=== PATIENT | male | born 1990 | race Caucasian/White ===

== ENCOUNTER 2021-01-17 07:03 | Emergency (ER) | payer SELFPAY ==
[2021-01-17 07:03] VITALS: BP 116/67; PULSE 85; RESP 16; TEMP 36.6; O2SAT 100; BMI 22.4
--- NOTE | 2021-01-17 07:14 | CT_ITS ---
STUDY: CT ABDOMEN AND PELVIS WITHOUT CONTRAST REASON FOR EXAM: Male, 30 years old. Flank pain and fever RADIATION DOSAGE (If Supplied By Facility): CTDIvol = ( 6.11 ) mGy, DLP = ( 289.97 ) mGycm TECHNIQUE: Transaxial images were obtained from the dome of the diaphragm to the symphysis pubis without oral contrast, and without intravenous contrast. Sagittal and coronal images were reconstructed. Individualized dose optimization techniques were used for this CT. COMPARISON: None. FINDINGS: The visualized lung bases are unremarkable. The visualized portions of the heart are within normal limits. Normal liver. Normal gallbladder and extrahepatic biliary system. Normal spleen. Normal pancreas. Normal bilateral adrenal glands. There is right-sided hydronephrosis and hydroureter with a minimal amount of perinephric and periureteral inflammatory stranding. Findings are due to a 3.3 mm stone in the distal right ureter best seen on axial image 139, and coronal image 58. Additionally, there are punctate bilateral nonobstructing renal stones in the cortical medullary junctions. Left kidney is free of obstruction. No solid renal lesion. Hyperdensities within the stomach likely represent ingested medication Normal small intestine. Retained stool noted in the colon. The appendix is visualized and appears normal. Appendix seen on coronal recon images 35-41. Normal abdominal aorta. Normal inferior vena cava. Normal retroperitoneum. Normal urinary bladder. Normal abdominal wall. Normal osseous structures. CT/Abdomen/Pelvis without Cont IMPRESSION: Right-sided hydronephrosis and hydroureter with a minimal amount of perinephric and periureteral inflammatory stranding. Findings due to a 3.3 mm stone in the distal right ureter Bilateral nonobstructing nephrolithiasis Normal appendix visualized No free intraperitoneal fluid, air, or suspicious adenopathy Electronically Signed: Ishan Fatima MD at 8:05 EDT , Service support ,
--- NOTE | 2021-01-17 07:15 | EX.ED.DYSGE1 ---
HPI History of Present Illness Chief Complaint: Flank Pain Narrative Narrative: 30-year-old male with reported history of kidney stones presents with 2 days of right flank pain. He describes this is intermittent. He states he gets sweaty when this occurs. He states that he is never had to have a procedure to remove a kidney stone however he also states that his kidney stones never passed. Patient has not followed up with urology. He denies any medical problems. He is making normal urine and stool. He denies hematuria or dysuria. PFSH PFSH Home Medications hydrocodone-acetaminophen 1 tab PO Q6H 3 Days #12 tablet 01/17/21 [Rx Last Taken Unknown] ondansetron HCl [Zofran] 4 mg PO Q8H #14 tab 01/17/21 [Rx Last Taken Unknown] tamsulosin [Flomax] 0.4 mg PO DAILY #7 cap 01/17/21 [Rx Last Taken Unknown] Allergy/AdvReac Type Severity Reaction Status Date / Time Penicillins Allergy Hives Verified 01/17/21 07:05 Social History Smoking Status: Current every day smoker ROS ROS ED Constitutional Constitutional ED: Denies chills, fever(s) or sweats Eyes Eyes: Denies blurry vision or change in vision ENT ENT ED: Denies ear pain, rhinorrhea or sore throat Cardiovascular Cardiovascular: Denies chest pain, palpitations or racing heartbeat Respiratory/Chest Respiratory/Chest: Denies cough, dyspnea or sputum Gastrointestinal Gastrointestinal: Reports nausea and other Details: Intermittent right flank pain ; Denies abdominal pain, constipation, diarrhea or vomiting Genitourinary Genitourinary ED: Denies dysuria, hematuria or urinary frequency Musculoskeletal Musculoskeletal: Denies arthralgias, myalgias or neck pain Integumentary Denies abscess, Abrasions or rash Neurologic Neurologic: Denies headache(s), paresthesias or weakness Psychiatric Psychiatric: Denies anxiety, depression, suicidal ideation or suicidal thoughts Endocrine Endocrinology: Denies polydipsia or polyuria EXAM Physical Exam Const Vital Signs: 01/17/21 07:03 Temperature 97.9 F Temperature Source Temporal Pulse Rate 85 Respiratory Rate 16 Blood Pressure 116/67 Blood Pressure Mean 83 Pulse Ox 100 Oxygen Delivery Method Room Air General Appearance ED: Negative for pallor HEENT Reports normocephalic, head/scalp atraumatic and moist mucous membranes Eyes PERRL and EOMs intact bilaterally Neck no lymphadenopathy and supple Chest Wall inspection of chest normal and palpation of chest normal Resp normal respiratory effort and clear to auscultation bilaterally Auscultation: Negative for rales, rhonchi or wheezes Cardio regular rate and regular rhythm GI normal to inspection, nondistended, normoactive bowel sounds and non-distended Auscultation: normoactive bowel sounds Palpation: soft Narrative: Deferred Back/Spine no CVA tenderness General Back: Negative for CVA tenderness Cervical Spine: Negative for cervical spine tenderness Extremity normal to inspection General Extremety ED: Yes edema and tenderness General Extremity: edema Neuro oriented x3 and CN's II-XII intact bilaterally Sensorium / Orientation: alert Motor Exam: strength 5/5 throughout Psych mental status grossly normal Attitude: No agitated Skin no rashes or lesions noted and no wounds General Skin Exam: Negative for jaundice or pallor MDM MDM MDM Narrative Medical decision making narrative: 30-year-old male presenting with right flank pain for the last couple days which is been intermittent. He states it feels like previous kidney stones. His vital signs are stable and he is afebrile. He had lab work which shows no leukocytosis with normal hemoglobin and hematocrit. Normal platelets. Patient's renal function and electrolytes are normal. He does have hematuria without signs of infection. Patient given Toradol and feels comfortable at this point. CT of the abdomen pelvis with out contrast shows 3.3 distal ureteral stone with some right-sided hydronephrosis and hydroureter. Patient will be given follow-up with urology. He is given [place], Zofran, Flomax. Patient stable discharge at this time. Impression: 1. 3.3 right ureteral stone 2. Hematuria Lab Data Labs: Laboratory Results - last 24 hr 01/17/21 01/17/21 01/17/21 07:30 07:30 07:30 WBC 4.7 RBC 5.10 Hgb 15.4 Hct 45.3 MCV 88.8 MCH 30.2 MCHC 34.0 RDW Std Deviation 41.1 RDW Coeff of Eda 12.6 Plt Count 147 L MPV 11.2 Immature Gran % (Auto) 0.200 Neut % (Auto) 66.1 Lymph % (Auto) 25.7 [place] % (Auto) 5.9 Eos % (Auto) 1.9 Baso % (Auto) 0.2 Absolute Neuts (auto) 3.1 Absolute Lymphs (auto) 1.21 Nucleated RBC % 0 Sodium 142 Potassium 3.8 Chloride 110 H Carbon Dioxide 31.0 Anion Gap 1 L BUN 11 Creatinine 1.17 Estim Creat Clear Calc 98.62 Est GFR (MDRD) Af Amer 94 Est GFR (MDRD) Non-Af 78 BUN/Creatinine Ratio 9.4 L Glucose 86 Calcium 9.3 Urine Color Yellow Urine Clarity Sl. Cloudy Urine pH 5.0 Ur Specific [place] 1.025 Urine Protein 30 H Urine Glucose (UA) Normal Urine Ketones 5 H Urine Occult Blood 250 H Urine Nitrite Negative Urine Bilirubin 1 H Urine Urobilinogen 1 H Ur Leukocyte Esterase 100 H Urine RBC > 100 SEEN Urine WBC 0 SEEN Ur Squamous Epith Cells 0 SEEN Urine Bacteria 0 SEEN Urine Mucus 0 SEEN Radiography Diagnostic Testing: Radiology Impression Abdomen/Pelvis CT 01/17/21 07:14 IMPRESSION: Right-sided hydronephrosis and hydroureter with a minimal amount of perinephric and periureteral inflammatory stranding. Findings due to a 3.3 mm stone in the distal right ureter Bilateral nonobstructing nephrolithiasis Normal appendix visualized No free intraperitoneal fluid, air, or suspicious adenopathy Electronically Signed: Ishan Fatima MD at 8:05 EDT , Service support , Discharge Plan Triage Chief Complaint: Flank Pain ED Provider: Te Santoyo Dx/Rx/DC Orders Instructions: ED Kidney Stone w/ Colic Prescriptions: New ondansetron HCl [Zofran] 4 mg tablet 4 mg PO Q8H Qty: 14 RF: 0 tamsulosin [Flomax] 0.4 mg capsule 0.4 mg PO DAILY Qty: 7 RF: 0 hydrocodone-acetaminophen 5-325 mg tablet 1 tab PO Q6H 3 Days Qty: 12 RF: 0 Primary Care Provider: Care Physician,No Primary Referrals: Fidel Kaur MD [STAFF PHYSICIAN] - Care Physician,No Primary [Primary Care Provider] - Disposition Disposition: Home, self care
[2021-01-17] MEDS: Ketorolac 15 MG/ML Vial IV (07:31)
[2021-01-17 07:34] LABS: Bacteria 0 SEEN /hpf (None Seen); Mucous, Urine 0 SEEN /hpf (<or=2+); Squamous Epithelial Cells - UA 0 SEEN /hpf (0-5); White Blood Cells 0 SEEN /hpf (0-5)
[2021-01-17 07:36] LABS: Color, Urine Yellow (Yellow); Glucose, Dipstick Normal (Normal); Ketone-Dipstick 5 mg/dl (Negative); Leukocyte Esterase-Dipstick 100 /ul (Negative); Nitrite-Dipstick Negative (Negative); Occult Blood-Urine 250 /ul (Negative); Protein-Dipstick 30 mg/dl (Negative); Specific Gravity, Urine 1.025 (1.002-1.030); Urine Clarity Sl. Cloudy (Clear); Urine Urobilinogen 1 mg/dl (Normal)
[2021-01-17 07:38] LABS: Absolute Lymphocyte Count 1.21 X10^3/uL (0.83-4.51); Absolute Neutrophil Count 3.1 X10^3/uL (2.0-7.7); Basophil# 0.01 X10^3/uL; Basophil% 0.2 % (0-1); Eosinophil# 0.09 X10^3/uL; Eosinophils% 1.9 % (0-5); Hematocrit 45.3 % (40-54); Hemoglobin 15.4 g/dL (13.0-16.5); Lymphocyte # 1.21 X10^3/ul (0.83-4.51); Lymphocyte % 25.7 % (19-41); Mean Corpuscular Hgb 30.2 pg (27.0-32.0); Mean Corpuscular Volume 88.8 fL (80-94); Mean Platelet Vol. 11.2 fl (6.2-12.0); Monocyte# 0.28 X10^3/uL; Monocyte% 5.9 % (0-10); NRBC Flagged by Analyzer 0 % (0-5); Neutrophil # 3.11 X10^3/uL (2.7-7.7); Neutrophil % 66.1 % (47-70); Platelet Count 147 K/mm3 (150-450); RBC Distribution Width CV 12.6 % (11.6-14.6); RBC Distribution Width SD 41.1 fl (35.1-43.9); White Blood Count 4.7 K/mm3 (4.4-11.0)
[2021-01-17 07:42] LABS: Urine Bilirubin Dipstick 1 mg/dL (Negative)
[2021-01-17 07:43] LABS: Red Blood Cells-Urine > 100 SEEN /hpf (0-5)
[2021-01-17 07:49] LABS: Anion Gap 1 (5-15); BUN 11 mg/dL (7-18); BUN/Creat Ratio 9.4 RATIO (10-20); Calcium,Total 9.3 mg/dL (8.5-10.1); Chloride 110 mmol/L (98-107); Creatinine, Serum 1.17 mg/dL (0.70-1.30); EST Glomerular Filtration Rate 78 mL/min (>60); Est Glom Filt Rate - Afr Amer 94 mL/min (>60); Estimated Creatinine Clearance 98.62 ml/min; Glucose 86 mg/dL (74-106); Potassium 3.8 mmol/L (3.5-5.1); Sodium Level 142 mmol/L (136-145)
== END 2021-01-17 08:28 | disposition home or self-care (01) ==
PROVIDERS: Emergency Provider Student in an Organized Health Care Education/Training Program
DX: N13.2 Hydronephrosis with renal and ureteral calculous obstruction (principal); F17.200 Nicotine dependence, unspecified, uncomplicated; Z87.442 Personal history of urinary calculi
CPT/HCPCS: 74176; 80048; 81001; 85025; 96374; 99283; A4216

== ENCOUNTER 2022-01-13 09:02 | Emergency (ER) | payer MEDICAID, SELFPAY ==
[2022-01-13 09:03] VITALS: BP 114/73; PULSE 78; RESP 17; TEMP 36.5; O2SAT 97; BMI 24.9
--- NOTE | 2022-01-13 09:06 | NURSING ---
NO OLD EKGS
--- NOTE | 2022-01-13 09:19 | EDS_ITS ---
HPI History of Present Illness Chief Complaint: Chest Pain Detail of Chief Complaint: Chest pain and rash Informant: patient Onset/Context/Timing Onset: Days Context: Sudden Onset Timing: Intermittent Quality: Sharp Location: Right pectoralis region Current Severity: Gone Maximum Severity: Moderate Worsened by: Nothing Relieved by: Nothing Associated Symptoms Associated Symptoms: Nothing Narrative Narrative: Patient is a 31-year-old male who presents because of rash and chest pain rash noted by . She is concerned he has shingles. He states it began to itch and he rubbed his back against the wall. He has no hyperesthesia. He denies the rash being pruritic. He is concerned because it is crusting. The rash is not painful. He denies joint pain or muscle pain. He denies headache, visual, ocular auditory symptoms. He denies photophobia, neck pain or neck stiffness. With regards to the chest pain the chest pain is located in the right side described as sharp. Nothing makes it better or worse. He presently has no pain. He has not taken anything for the chest pain. He denies sour eructation. He denies history of peptic ulcer disease, hiatal hernia or reflux. He denies black or maroon-colored stool. He denies history of VTE and has no risk factors. He denies leg pain, swelling or discoloration. Prior similar symptoms: No Recent Illness/Hospitalization: No PFSH PFSH Medical History no medical history no medical history Home Medications doxycycline monohydrate 100 mg PO BID #14 capsule 01/13/22 [Rx Last Taken Unknown] naproxen 500 mg PO BID #14 tab 01/13/22 [Rx Last Taken Unknown] Allergy/AdvReac Type Severity Reaction Status Date / Time Penicillins Allergy Hives Verified 01/13/22 09:03 Surgical History (Updated 01/13/22 @ 09:11 by Adriana Ang) Hx of rotator cuff surgery Social History (Updated 01/13/22 @ 09:[address] Ba Alvarado MD) household members: spouse and children Smoking Status: Current every day smoker tobacco type: cigarettes substance use type: does not use ROS ROS ED Constitutional Constitutional ED: Denies chills, fever(s), subjective, sweats or weight loss Eyes Eyes: Denies blurry vision, change in vision or diplopia ENT ENT ED: Denies ear pain, rhinorrhea or sore throat Cardiovascular Cardiovascular: Reports chest pain and other Details: He reports the chest pain does radiate through to his back. ; Denies orthopnea, palpitations or racing heartbeat Respiratory/Chest Respiratory/Chest: Reports cough; Denies dyspnea, dyspnea on exertion, orthopnea or sputum Gastrointestinal Gastrointestinal: Denies abdominal pain, diarrhea, melena, nausea or vomiting Musculoskeletal Musculoskeletal: Reports back pain; Denies arthralgias, myalgias or neck pain Integumentary Reports Abrasions and rash Neurologic Neurologic: Denies headache(s), paresthesias or weakness Endocrine Endocrinology: Denies polydipsia, polyphagia or polyuria EXAM Physical Exam Const Vital Signs: 01/13/22 09:03 Temperature 97.7 F L Temperature Source Temporal Pulse Rate 78 Respiratory Rate 17 Blood Pressure 114/73 Blood Pressure Mean 86 Pulse Ox 97 Oxygen Delivery Method Room Air Positive well nourished and well developed General Appearance ED: well developed and NAD; Negative for cyanotic, diaphoretic or pallor HEENT Reports moist mucous membranes HEENT Narrative: Nares patent. Ears normal. Posterior pharynx out erythema or exudate. Uvula midline. Negative for trauma or tenderness Eyes PERRL and EOMs intact bilaterally General Eye ED: Negative for pale conjunctiva or scleral icterus Neck no lymphadenopathy, supple and no JVD Chest Wall palpation of chest normal; Negative for inspection of chest normal Chest: other Patient has pustular rash on the right side. It crosses many dermatomes. Resp normal respiratory effort and clear to auscultation bilaterally Effort and Inspection: other There is pain palpation over the fourth fifth right intercostal space. ; Negative for pain with movement Cardio regular rate, regular rhythm, S1 normal heart sound, S2 normal heart sound and no murmurs GI normal to inspection, nondistended, normoactive bowel sounds, non-tender and n on-distended Palpation: soft Back/Spine no CVA tenderness Cervical Spine: Negative for cervical spine tenderness Extremity normal to inspection General Extremety ED: Negative for edema or tenderness General Extremity: Negative for edema Neuro oriented x3, CN's II-XII intact bilaterally and no sensory deficits noted Sensorium / Orientation: alert Motor Exam: strength 5/5 throughout Psych mental status grossly normal Skin no wounds and skin turgor normal Skin Narrative: Patient has pustular rash involving the upper right side of the back and left side. There is also a pustular rash noted over the right pectoral region. General Skin Exam: elasticity normal; Negative for jaundice or pallor Rashes: rashes noted MDM MDM MDM Narrative Medical decision making narrative: She presents with atypical chest pain that is not cardiac. His pain is consistent with costochondritis. We will treat with NSAIDs. With regards to the rash since he has significant pustular rash will place on antibiotics to cover streptococcal and staphylococcal organisms. He was discharged home with appropriate home-going instructions. Discharge Plan Triage Chief Complaint: Chest Pain ED Provider: Ba Alvarado Dx/Rx/DC Orders Clinical Impression: Intermittent right-sided chest pain, Costochondritis, Pustular rash Instructions: ED Chest Pain, Noncardiac, ED Chest Wall Pain, Costochondritis Prescriptions: New doxycycline monohydrate 100 MG capsule 100 mg PO BID Qty: 14 RF: 0 naproxen 500 MG tablet 500 mg PO BID Qty: 14 RF: 0 Primary Care Provider: Care Physician,No Primary Referrals: Lisseth Oreilly MD [STAFF PHYSICIAN] - 1 Week if not improving Care Physician,No Primary [Primary Care Provider] - Disposition Disposition: Home, Self Care
[2022-01-13] MEDS: Naproxen 250 MG Tablet 500 MG PO (09:44)
== END 2022-01-13 09:51 | disposition home or self-care (01) ==
PROVIDERS: Emergency Provider Emergency Medicine; Visit Provider Emergency Medicine
DX: R07.9 Chest pain, unspecified (principal); M94.0 Chondrocostal junction syndrome [Tietze]; F17.210 Nicotine dependence, cigarettes, uncomplicated; L08.0 Pyoderma
CPT/HCPCS: 99283

== ENCOUNTER 2022-05-11 02:35 | Emergency (ER) | payer SELFPAY ==
[2022-05-11 02:35] VITALS: PULSE 69; RESP 16; TEMP 36.1; O2SAT 99; BMI 23.9
[2022-05-11 02:37] VITALS: BP 112/81; PULSE 69; RESP 16; TEMP 36.1; O2SAT 99
--- NOTE | 2022-05-11 02:42 | ED.VIS.DENTA ---
HPI History of Present Illness Chief Complaint: Dental Informant: patient Onset/Context/Timing Onset: Today Context: Gradual Onset Timing: Continuous Quality: Throbbing Location: Left mandibular molar Current Severity: Severe Maximum Severity: Severe Worsened by: Chewing Relieved by: - (Nothing tried ibuprofen but did not help) Narrative Narrative: Spontaneous onset tooth ache and some mild swelling of the associated gingiva but no discharge, no facial swelling, no fevers or chills. He states he came in as soon as he noticed it because the last time he let a tooth ache go without doing anything about it he ended up admitted to the ICU for 3 days. PFSH PFSH Home Medications clindamycin HCl 150 mg capsule 300 mg PO 4X/DAY #80 CAPSULES 05/11/22 [Rx Last Taken Unknown] hydrocodone-acetaminophen 5-325mg 5mg-325mg 1 tab PO Q6H PRN PRN Pain 2 days #8 TABLETS 05/11/22 [Rx Last Taken Unknown] Allergy/AdvReac Type Severity Reaction Status Date / Time Penicillins Allergy Hives Verified 01/13/22 09:03 Surgical History Hx of rotator cuff surgery Social History household members: spouse and children Smoking Status: Current every day smoker tobacco type: cigarettes substance use type: does not use ROS ROS ED Constitutional Constitutional ED: Denies chills or fever(s) Eyes Eyes: Denies change in vision or double vision ENT ENT ED: Reports dental pain; Denies sinus pain or throat swelling Cardiovascular Cardiovascular: Denies chest pain or palpitations Respiratory/Chest Respiratory/Chest: Denies cough or dyspnea Integumentary Denies abscess or rash Neurologic Neurologic: Denies headache(s), paresthesias or weakness EXAM Physical Exam Const Vital Signs: 05/11/22 02:35 05/11/22 02:37 Temperature 97 F L 97 F L Temperature Source Temporal Temporal Pulse Rate 69 69 Respiratory Rate 16 16 Blood Pressure 112/81 H Blood Pressure Mean 91 Pulse Ox 99 99 Oxygen Delivery Method Room Air Room Air Positive well nourished and well developed General Appearance ED: well developed and NAD HEENT HEENT Narrative: Tender molar #18, at the lateral/outside aspect of it where it meets the gingiva there is an inflamed area with a small amount of blood but no active bleeding or expressible discharge, no palpable abscess, and this is very focal at the base of the tooth. Probable cavity there. No trismus. Floor of mouth soft and nondistended. No tongue elevation. No stridor. Normal voice. Face and Sinus: sinuses nontender Throat: posterior oropharynx normal Eyes PERRL and EOMs intact bilaterally Neck no lymphadenopathy and supple Resp normal respiratory effort Neuro oriented x3 and CN's II-XII intact bilaterally Sensorium / Orientation: alert Gait (Neuro): normal gait Psych mental status grossly normal and thought process normal Skin no rashes or lesions noted and no wounds MDM MDM MDM Narrative Medical decision making narrative: Patient understandably comes in early for this. Does appear there is an infection starting. There is nothing drainable. He is allergic to penicillin. Starting him on clindamycin here, he states he could not sleep tonight which is why he presented at 2:30 a.m., due to the pain. Prescribed a short course of some [place], we will fill it out our pharmacy and he can take it at home with him since he is driving and take the pill there. Discharge Plan Triage Chief Complaint: Dental ED Provider: Camden Nevarez Dx/Rx/DC Orders Clinical Impression: Dental infection, Odontalgia Instructions: ED Dental Abscess Prescriptions: New hydrocodone-acetaminophen [hydrocodone-acetaminophen] 5-325 mg tablet 1 tab PO Q6H PRN PRN (Reason: Pain) 2 Days Qty: 8 0RF clindamycin HCl 150 mg capsule 300 mg PO 4X/DAY Qty: 80 0RF Primary Care Provider: Care Physician,No Primary Referrals: Care Physician,No Primary [Primary Care Provider] - Dentist,Your [STAFF PHYSICIAN] - As soon as possible Activity Restrictions/Additional Instructions: All antibiotics can cause antibiotic-associated diarrhea, but clindamycin is more likely to. In order to avoid this, try eating yogurt daily and/or taking a probiotic capsule while you are on the antibiotic. Disposition Disposition: Home, Self Care
[2022-05-11] MEDS: Clindamycin HCl 150 MG Capsule 300 MG PO (02:48)
[2022-05-11 02:50] VITALS: BP 110/74; PULSE 84; RESP 16; O2SAT 97
== END 2022-05-11 02:59 | disposition home or self-care (01) ==
LOC: ED 02:54
PROVIDERS: Emergency Provider Emergency Medicine; Visit Provider Emergency Medicine
DX: K04.7 Periapical abscess without sinus (principal); F17.210 Nicotine dependence, cigarettes, uncomplicated
CPT/HCPCS: 99283

== ENCOUNTER 2022-08-01 10:05 | Emergency (ER) | payer SELFPAY ==
[2022-08-01 10:06] VITALS: PULSE 63; RESP 18; TEMP 36.8; O2SAT 100; BMI 24.5
--- NOTE | 2022-08-01 10:25 | ED.VIS.GI ---
HPI HPI - GI History of Present Illness Chief Complaint: Flank Pain Narrative Narrative: 32-year-old male presenting with left-sided flank pain. He states it started about an hour ago. He denies dysuria, hematuria, urinary frequency. He does admit to a history of kidney stones. He states his last one was on the right and he believes that he passed it. He has not followed up with urology. He states today the pain became so bad that he vomited once. He has been otherwise healthy prior to this event. Denies any trauma. PFSH PFSH Home Medications hydrocodone-acetaminophen 5-325mg 5mg-325mg 1 tab PO Q6H PRN pain 3 days #12 tabs 08/01/22 [Rx Last Taken Unknown] naproxen 500 mg tablet (Naprosyn) 500 mg PO BID PRN pain #20 tabs 08/01/22 [Rx Last Taken Unknown] ondansetron 4 mg disintegrating tablet 4 mg PO Q8H PRN nausea and vomiting #12 tabs 08/01/22 [Rx Last Taken Unknown] Allergy/AdvReac Type Severity Reaction Status Date / Time Penicillins Allergy Hives Verified 08/01/22 10:06 Surgical History Hx of rotator cuff surgery Social History household members: spouse and children Smoking Status: Current every day smoker tobacco type: cigarettes substance use type: does not use ROS ROS ED Constitutional Constitutional ED: Denies chills or fever(s) ENT ENT ED: Denies rhinorrhea or sore throat Cardiovascular Cardiovascular: Denies chest pain or palpitations Respiratory/Chest Respiratory/Chest: Denies cough or dyspnea Gastrointestinal Gastrointestinal: Reports nausea and vomiting; Denies abdominal pain Genitourinary Genitourinary ED: Denies dysuria or hematuria Musculoskeletal Musculoskeletal: Reports back pain; Denies arthralgias Integumentary Denies abscess or Abrasions Neurologic Neurologic: Denies headache(s) or paresthesias Psychiatric Psychiatric: Denies anxiety or depression Endocrine Endocrinology: Denies polydipsia or polyphagia EXAM Physical Exam Const Vital Signs: 08/01/22 10:06 08/01/22 10:16 Temperature 98.2 F Temperature Source Temporal Pulse Rate 63 Respiratory Rate 18 Respiratory Effort Normal Non-Labored Respiratory Pattern Normal Pulse Ox 100 Oxygen Delivery Method Room Air Positive well nourished General Appearance ED: NAD; Negative for pallor HEENT Reports moist mucous membranes normocephalic Eyes PERRL and EOMs intact bilaterally Resp normal respiratory effort Cardio regular rate and regular rhythm GI non-tender and non-distended Back/Spine General Back: CVA tenderness left Neuro CN's II-XII intact bilaterally Sensorium / Orientation: alert Psych mental status grossly normal Skin General Skin Exam: Negative for jaundice or pallor MDM MDM MDM Narrative Medical decision making narrative: Patient seen and evaluated for left flank pain. It is consistent with his previous kidney stone only is on the opposite side. Blood work is obtained and his CBC and BMP are unremarkable. Urinalysis positive for occult blood but no evidence of infection. Patient was medicated with Toradol and states his pain is down to [address] of the abdomen pelvis without contrast was obtained which shows a 3 mm left UVJ stone with mild hydroureteronephrosis. Patient counseled on findings. The be given follow-up with urology. He was given a prescription for Naprosyn to take for pain as the anti-inflammatories seem to help his pain. He was given Zofran for nausea. He was given [place] for breakthrough pain. Impression: 1. 3 mm left-sided UVJ stone 2. Hematuria 3. Left-sided hydroureteronephrosis Lab Data Attestation: I reviewed the patient's lab results. Labs: Laboratory Results - last 24 hr 08/01/22 08/01/22 08/01/22 10:14 10:14 12:01 WBC 11.3 H RBC 5.07 Hgb 15.2 Hct 45.1 MCV 89.0 MCH 30.0 MCHC 33.7 RDW Std Deviation 42.1 RDW Coeff of Eda 12.9 Plt Count 161 MPV 11.1 Immature Gran % (Auto) 0.400 Neut % (Auto) 85.4 H Lymph % (Auto) 9.7 L [place] % (Auto) 3.9 Eos % (Auto) 0.4 Baso % (Auto) 0.2 Absolute Neuts (auto) 9.7 H Absolute Lymphs (auto) 1.10 Nucleated RBC % 0 Sodium 141 Potassium 4.0 Chloride 109 H Carbon Dioxide 29.0 Anion Gap 3 L BUN 13 Creatinine 1.24 Estim Creat Clear Calc 91.93 Est GFR (MDRD) Af Amer 87 Est GFR (MDRD) Non-Af 72 BUN/Creatinine Ratio 10.5 Glucose 126 H Calcium 8.6 Urine Color Yellow Urine Clarity Sl. Cloudy Urine pH 5.0 Ur Specific [place] 1.020 Urine Protein 30 H Urine Glucose (UA) Normal Urine Ketones 5 H Urine Occult Blood 250 H Urine Nitrite Negative Urine Bilirubin Negative Urine Urobilinogen 1 H Ur Leukocyte Esterase 25 H Urine RBC > 100 SEEN Urine WBC 0-5 SEEN Ur Squamous Epith Cells 0 SEEN Urine Bacteria 0 SEEN Urine Mucus 2+ Radiography Diagnostic Testing: Clinical Impression(s) from Imaging Studies Abdomen/Pelvis CT 08/01/22 10:41 IMPRESSION: 3 mm calculus at the left ureteral vesicle junction causing mild left hydronephrosis and nodule ureter with perinephric and periureteric stranding. Small bilateral nonobstructive intrarenal calculi. Moderate degree of splenomegaly. Electronically Signed: Leroy Branch MD at 11:45 EST , Discharge Plan Triage Chief Complaint: Flank Pain ED Provider: Te Santoyo Dx/Rx/DC Orders Instructions: ED Kidney Stone w/ Colic Prescriptions: New hydrocodone-acetaminophen 5-325 mg tablet 1 tab PO Q6H PRN (Reason: pain) 3 Days Qty: 12 0RF ondansetron 4 mg tablet,disintegrating 4 mg PO Q8H PRN (Reason: nausea and vomiting) Qty: 12 0RF naproxen [Naprosyn] 500 mg tablet 500 mg PO BID PRN (Reason: pain) Qty: 20 0RF Primary Care Provider: Care Physician,No Primary Referrals: Fidel Kaur MD [Med Staff - Active Staff] - As soon as possible Care Physician,No Primary [Primary Care Provider] - Disposition Disposition: Home, Self Care
[2022-08-01] MEDS: Ketorolac 15 MG/ML Vial IV (10:29)
[2022-08-01] MEDS: Ondansetron 4 MG/2 ML Vial IV (10:29)
[2022-08-01 10:30] LABS: Absolute Neutrophil Count 9.7 X10^3/uL (2.0-7.7); Basophil# 0.02 X10^3/uL; Basophil% 0.2 % (0-1); Eosinophil# 0.04 X10^3/uL; Eosinophils% 0.4 % (0-5); Hematocrit 45.1 % (40-54); Hemoglobin 15.2 g/dL (13.0-16.5); Lymphocyte % 9.7 % (19-41); Mean Corp Hgb Conc 33.7 g/dL (32-36); Mean Platelet Vol. 11.1 fl (6.2-12.0); Monocyte# 0.44 X10^3/uL; Monocyte% 3.9 % (0-10); NRBC Flagged by Analyzer 0 % (0-5); Neutrophil # 9.69 X10^3/uL (2.7-7.7); Neutrophil % 85.4 % (47-70); Platelet Count 161 K/mm3 (150-450); RBC Distribution Width CV 12.9 % (11.6-14.6); RBC Distribution Width SD 42.1 fl (35.1-43.9); Red Blood Count 5.07 M/mm3 (4.6-6.2); White Blood Count 11.3 K/mm3 (4.4-11.0)
--- NOTE | 2022-08-01 10:41 | CT_ITS ---
STUDY: CT ABDOMEN AND PELVIS WITHOUT CONTRAST REASON FOR EXAM: Male, 32 years old. 1 hour history of left flank pain and hematuria. History of kidney stones. RADIATION DOSAGE (If Supplied By Facility): CTDIvol = ( 6.29 ) mGy, DLP = ( 333.17 ) mGycm TECHNIQUE: Transaxial images were obtained from the dome of the diaphragm to the symphysis pubis without oral contrast, and without intravenous contrast. Sagittal and coronal images were reconstructed. Individualized dose optimization techniques were used for this CT. COMPARISON: Comparison is made with prior study dated 01/17/2021. FINDINGS: The visualized lung bases are unremarkable. The visualized portions of the heart are within normal limits. Normal liver. Normal gallbladder and extrahepatic biliary system. There is moderate splenomegaly. Normal pancreas. Normal bilateral adrenal glands. Tiny nonobstructive right intrarenal calculi. Mild degree of left hydronephrosis and left hydroureter with perinephric and periureteric stranding due to a 3 mm calculus at the left ureterovesical junction. Scattered tiny nonobstructive left intrarenal calculi. Normal visualized stomach. Normal small intestine. Normal colon. The appendix is visualized and appears normal. Normal abdominal aorta. Normal inferior vena cava. There is borderline retroperitoneal lymphadenopathy with enlarged nodes no greater than 10mm in the short axis diameter. Normal urinary bladder. Normal abdominal wall. Normal osseous structures. Straightening of the normal lumbar lordosis. CT/Abdomen/Pelvis without Cont IMPRESSION: 3 mm calculus at the left ureteral vesicle junction causing mild left hydronephrosis and nodule ureter with perinephric and periureteric stranding. Small bilateral nonobstructive intrarenal calculi. Moderate degree of splenomegaly. Electronically Signed: Leroy Branch MD at 11:45 EST ,
[2022-08-01 10:43] LABS: Anion Gap 3 (5-15); BUN 13 mg/dL (7-18); BUN/Creat Ratio 10.5 RATIO (10-20); Calcium,Total 8.6 mg/dL (8.5-10.1); Chloride 109 mmol/L (98-107); Creatinine, Serum 1.24 mg/dL (0.70-1.30); EST Glomerular Filtration Rate 72 mL/min (>60); Est Glom Filt Rate - Afr Amer 87 mL/min (>60); Estimated Creatinine Clearance 91.93 ml/min; Glucose 126 mg/dL (74-106); Sodium Level 141 mmol/L (136-145)
--- NOTE | 2022-08-01 12:02 | CM.ED ---
JACEK Note JACEK noted on tracker patient had no insurance. JACEK provided patient with the financial aide packet. JACEK remains available if needs arise. Dinorah MIN
[2022-08-01 12:04] LABS: Bacteria 0 SEEN /hpf (None Seen); Squamous Epithelial Cells - UA 0 SEEN /hpf (0-5)
[2022-08-01 12:06] LABS: Color, Urine Yellow (Yellow); Glucose, Dipstick Normal (Normal); Ketone-Dipstick 5 mg/dl (Negative); Leukocyte Esterase-Dipstick 25 /ul (Negative); Nitrite-Dipstick Negative (Negative); Occult Blood-Urine 250 /ul (Negative); Protein-Dipstick 30 mg/dl (Negative); Urine Bilirubin Dipstick Negative (Negative); Urine Clarity Sl. Cloudy (Clear); Urine Urobilinogen 1 mg/dl (Normal)
[2022-08-01 12:18] LABS: Mucous, Urine 2+ /hpf (<or=2+); Red Blood Cells-Urine > 100 SEEN /hpf (0-5); White Blood Cells 0-5 SEEN /hpf (0-5)
== END 2022-08-01 12:58 | disposition home or self-care (01) ==
PROVIDERS: Emergency Provider Student in an Organized Health Care Education/Training Program; Visit Provider Student in an Organized Health Care Education/Training Program
DX: N13.2 Hydronephrosis with renal and ureteral calculous obstruction (principal); R31.9 Hematuria, unspecified; F17.210 Nicotine dependence, cigarettes, uncomplicated; Z79.899 Other long term (current) drug therapy; Z87.442 Personal history of urinary calculi
CPT/HCPCS: 74176; 80048; 81001; 85025; 96374; 96375; 99283; A4216; J2405

== ENCOUNTER 2024-06-05 14:29 | Emergency (ER) | payer SELFPAY ==
[2024-06-05 14:29] VITALS: BP 124/81; PULSE 84; RESP 14; TEMP 36.3; O2SAT 98; BMI 23.6
--- NOTE | 2024-06-05 14:46 | CT_ITS ---
INDICATION: headache EXAMINATION: CT BRAIN - CT Head or Brain W/O Contrast Injection TECHNIQUE: Multiple axial images were obtained of the head without intravenous contrast. The protocol utilizes one or more of the following dose reduction techniques: automated exposure control, adjustment of mA and/or kV according to patient size,and/or use of iterative reconstruction technique. IV Contrast dosage and agent: None. RADIATION DOSAGE (If Supplied By Facility): CTDIvol = ( 44.99 ) mGy, DLP = ( 796.11 ) mGycm COMPARISON: No relevant prior comparison study available FINDINGS: BRAIN PARENCHYMA: No intra- or extra-axial hemorrhage. No evidence of acute infarct. No intracranial mass or mass effect. There is preservation of the madrigal/white matter interface. Posterior fossa structures are unremarkable. CSF SPACES: Appropriate for age. No hydrocephalus. Basal cisterns are patent. CALVARIUM, SKULL BASE, PARANASAL SINUSES AND MASTOID AIR CELLS: There is a round low-attenuation focus within the left maxillary sinus consistent with a mucous retention cyst or polyp. No discrete lytic or blastic abnormalities. ORBITS: Both globes, extraocular muscles, optic nerves and retrobulbar fat appear unremarkable. ASPECTS Score for Acute Strokes: 10 CT/Brain/Head without Contrast IMPRESSION: No acute intracranial process. Electronically Signed: Cristina Lainez MD at 16:23 EDT ,
--- NOTE | 2024-06-05 14:51 | EX.ED.VIS.HA ---
HPI <NESTOR Gibbs - Last Filed: 06/05/24 17:04> History of Present Illness Chief Complaint: Headache Narrative Narrative: Patient presenting today with a headache he has had over the past month. He does have a history of migraines but has not had one last this long. He reports that the pain is generally located to the posterior and right and left side of his head. He has had the headache daily, the pain waxes and wanes throughout the day. He has been taking Excedrin with minimal relief of his pain. He does not currently have a PCP. He reports that his brother was recently diagnosed with a tumor in his brain that causes him to lactate, patient is requesting a CT to rule out a brain tumor. He denies any family history of brain aneurysm. He denies any chronic medical conditions. He denies had associated photophobia and phonophobia. He denies nausea, vomiting, fevers, and chills. PFSH <NESTOR Gibbs - Last Filed: 06/05/24 17:04> PFSH Home Medications ?Medication ?Instructions ?Recorded ?Last Taken ?Type hydrocodone-acetaminophen 5-325mg 1 tab PO Q6H PRN pain 3 days #12 08/01/22 Unknown Rx 5mg-325mg tabs naproxen 500 mg tablet (Naprosyn) 500 mg PO BID PRN pain #20 tabs 08/01/22 Unknown Rx ondansetron 4 mg disintegrating 4 mg PO Q8H PRN nausea and 08/01/22 Unknown Rx tablet vomiting #12 tabs Allergy/AdvReac Type Severity Reaction Status Date / Time Penicillins Allergy Hives Verified 06/05/24 14:29 Surgical History Hx of rotator cuff surgery Social History household members: spouse and children Smoking Status: Current every day smoker tobacco type: cigarettes substance use type: does not use ROS <NESTOR Gibbs - Last Filed: 06/05/24 17:04> ROS ED Constitutional Constitutional ED: Denies chills or fever(s) Eyes Eyes: Denies change in vision Cardiovascular Cardiovascular: Denies chest pain Respiratory/Chest Respiratory/Chest: Denies dyspnea Gastrointestinal Gastrointestinal: Denies abdominal pain, nausea or vomiting Musculoskeletal Musculoskeletal: Denies arthralgias or myalgias Integumentary Denies rash Neurologic Neurologic: Reports headache(s); Denies paresthesias or weakness EXAM <NESTOR Gibbs - Last Filed: 06/05/24 17:04> Physical Exam Const Vital Signs: 06/05/24 14:29 Temperature 97.4 F L Temperature Source Temporal Pulse Rate 84 Respiratory Rate 14 Blood Pressure 124/81 H Blood Pressure Mean 95 Pulse Ox 98 Oxygen Delivery Method Room Air Positive well nourished, well developed and no apparent distress General Appearance ED: well developed HEENT Reports normocephalic and head/scalp atraumatic Mouth ED: Yes moist mucous membranes normal Eyes PERRL and EOMs intact bilaterally Neck full ROM and supple Chest Wall inspection of chest normal Resp normal respiratory effort and clear to auscultation bilaterally Cardio regular rate and regular rhythm Back/Spine normal ROM and normal to inspection Extremity normal to inspection and full ROM Neuro oriented x3, CN's II-XII intact bilaterally, moves all extremities, no focal motor deficits and no sensory deficits noted Sensorium / Orientation: awake and alert Psych mental status grossly normal and thought process normal Skin no rashes or lesions noted and no wounds <Dr. Ba Alvarado MD - Last Filed: 06/05/24 21:05> Physical Exam Const Vital Signs: 06/05/24 14:29 Temperature 97.4 F L Temperature Source Temporal Pulse Rate 84 Respiratory Rate 14 Blood Pressure 124/81 H Blood Pressure Mean 95 Pulse Ox 98 Oxygen Delivery Method Room Air MDM <NESTOR Gibbs - Last Filed: 06/05/24 17:04> [facility] Narrative Medical decision making narrative: Patient presenting today due to headache he has had over the past month. He is nontoxic-appearing and in no acute distress. His vitals are unremarkable. Head CT will be obtained to rule out mass or other intracranial abnormality, this is negative. I did offer to give him a migraine cocktail consisting of IV fluids, Benadryl, Reglan, and Toradol. He declined and reported that he was not can be able to get a ride here. I then ordered ordered Cogentin in place of Benadryl and patient still declines and does not want a IV. I have given him a PCP referral, and encouraged that he follow-up as an outpatient. He will be discharged home in stable condition. Radiography Diagnostic Testing: Clinical Impression(s) from Imaging Studies Brain CT 06/05/24 14:46 IMPRESSION: No acute intracranial process. Electronically Signed: Cristina Lainez MD at 16:23 EDT , <Dr. Ba Alvarado MD - Last Filed: 06/05/24 21:05> [facility] Narrative Medical decision making narrative: Patient presenting today due to headache he has had over the past month. He is nontoxic-appearing and in no acute distress. His vitals are unremarkable. Head CT will be obtained to rule out mass or other intracranial abnormality, this is negative. I did offer to give him a migraine cocktail consisting of IV fluids, Benadryl, Reglan, and Toradol. He declined and reported that he was not can be able to get a ride here. I then ordered ordered Cogentin in place of Benadryl and patient still declines and does not want a IV. I have given him a PCP referral, and encouraged that he follow-up as an outpatient. He will be discharged home in stable condition. I have personally performed a face to face assessment of the patient and have reviewed the LADY Note. I performed a substantive portion of the visit including all aspects of the following. My thomas findings include: History is remarkable for global headache that is continuous for 1 month. He does endorse photophobia and sonophobia. He does endorse nausea. Father has history of migraines. Brother was recently diagnosed with brain tumor. There is no family history of subarachnoid hemorrhage or cerebral aneurysm. He denies double vision blurred vision loss of vision. He denies paul ears decreased hearing. He states he has problem with balance. He has not dropped anything recently or walk preferentially to the right or left. Exam is unremarkable. Vital signs are slightly abnormal with elevated blood pressure. Head is atraumatic no cephalic. TMs normal. Nares patent. Uvula midline. No deviation of the protrusion. No carotid bruits. Heart is regular. Rate is normal. There is no murmur, gallop or rub. Alert oriented x 3. Cranials 2 through 12 are intact. There is no dysmetria. Romberg with eyes open and close is negative. The eye askew test and the hints test were both negative. Gait was observed normal. Tandem gait was normal. DTRs 1-2+ upper and lower extremity with no clonus or Babinski sign. Medical Decision Making since patient had a continuous headache for 1 month will obtain scan to assess for any intracranial pathology i.e. bleed, mass, sinusitis. Per my review the CT of the head was unremarkable. Formal read by radiologist was negative. Patient initially declined medicine that was ordered because he did not have a ride home. Medicines were changed to accommodate him being able to drive himself home. He declined the medicine. Other additions or changes: [None] Radiography Diagnostic Testing: Clinical Impression(s) from Imaging Studies Brain CT 06/05/24 14:46 IMPRESSION: No acute intracranial process. Electronically Signed: Cristina Lainez MD at 16:23 EDT , Discharge Plan Triage Chief Complaint: Headache ED Midlevel Provider: Christiana Teresa ED Provider: Ba Alvarado Dx/Rx/DC Orders Clinical Impression: Headache, Photophobia, Nausea alone Instructions: Self-Care for Headaches Prescriptions: No Action hydrocodone-acetaminophen 5-325 mg tablet 1 tab PO Q6H PRN (Reason: pain) 3 Days Qty: 12 0RF ondansetron 4 mg tablet,disintegrating 4 mg PO Q8H PRN (Reason: nausea and vomiting) Qty: 12 0RF naproxen [Naprosyn] 500 mg tablet 500 mg PO BID PRN (Reason: pain) Qty: 20 0RF Primary Care Provider: Care Physician,No Primary Referrals: Care Physician,No Primary [Primary Care Provider] - Activity Restrictions/Additional Instructions: Please follow-up with the [facility] located at [address] [place] [address]. Their number is [phone]. Please return for any other concerns. Print Language: Guyanese Disposition Disposition: Home, Self Care Discharge Date/Time: 06/05/24 17:15
--- NOTE | 2024-06-05 16:01 | ED.RN ---
PT DOES NOT WANT IV OR MEDS SINCE HE CANNOT DRIVE WITH BENADRYL. PT COOPERATIVE WITH CT SCAN.
== END 2024-06-05 17:15 | disposition home or self-care (01) ==
PROVIDERS: Emergency Provider Emergency Medicine; Visit Provider Emergency Medicine
DX: R51.9 Headache, unspecified (principal); R11.0 Nausea; F17.210 Nicotine dependence, cigarettes, uncomplicated; Z82.0 Family history of epilepsy and other diseases of the nervous system
CPT/HCPCS: 70450; 99282